=== PATIENT | female | born 1975 | race Caucasian/White ===

== ENCOUNTER 2025-11-19 15:27 | Outpatient (CLI) | payer BC | END 2025-11-19 15:28 | disposition home or self-care (01) | LOC: SCSMRI 15:27 | PROVIDERS: ATTEND Nurse Practitioner Family | DX: M48.02 Spinal stenosis, cervical region (principal); M47.812 Spondylosis without myelopathy or radiculopathy, cervical region | CPT/HCPCS: 72141 ==